=== PATIENT | female | born 1970 | race Caucasian/White ===

== ENCOUNTER 2017-09-12 19:36 | Emergency (ER) | payer MEDICAID ==
[2017-09-12 19:36] VITALS: BMI 23.4
[2017-09-12 19:55] VITALS: BP 129/85; PULSE 99; RESP 18; TEMP 98.6; O2SAT 99
--- NOTE | 2017-09-12 21:42 | C.PDOC ---
Time Seen by Provider: 09/12/17 20:36 Chief Complaint (Nursing): Flu-like Symptoms Past Medical History Vital Signs: Last Vital Signs Temp 98.6 F 09/12/17 19:52 Pulse 99 H 09/12/17 19:52 Resp 18 09/12/17 19:52 BP 129/85 09/12/17 19:52 Pulse Ox 99 09/12/17 19:52 - Medical History PMH: Denies: Anxiety, Bipolar Disorder, Depression, Paranoia, Post Traumatic Stress Disorder, Schizophrenia, Sexually Transmitted Disease Surgical History: Denies: Appendectomy, CABG, Carotid Endarterectomy, Cholecystectomy, Coronary Stent, Tonsillectomy - [facility] Procedures CYSTOSCOPY NEC (11/04/13) INSERT INTERCOSTAL CATH (11/04/13) OTH REMOVE BOTH OVARIES/TUBES (11/04/13) OTHER AND UNSPECIFIED SUBTOTAL ABDOMINAL HYSTERECTOMY (11/04/13) PACKED CELL TRANSFUSION (11/04/13) THORACOSCOPIC DECORTICATION OF LUNG (11/04/13) URETERAL CATHETERIZATION (11/04/13) VENOUS CATHETERIZATION NEC (11/04/13) - Social History Hx Tobacco Use: No Hx Alcohol Use: No Hx Substance Use: No - Immunization History Hx Tetanus Toxoid Vaccination: No Hx Influenza Vaccination: No Hx Pneumococcal Vaccination: No ED Course And Treatment O2 Sat by Pulse Oximetry: 99 Disposition - Disposition Referrals: [facility] [Outside] Disposition: HOME/ ROUTINE Disposition Time: 21:36 Condition: GOOD Additional Instructions: Follow up with the medical doctor within 1-2 days. Return if worsened. Prescriptions: Benzonatate [Tessalon Perles] 200 mg PO TID PRN #21 sgl PRN Reason: Cough Loratadine [Claritin] 10 mg PO DAILY #10 tab predniSONE [Prednisone] 20 mg PO BID #10 tab Instructions: Acute Bronchitis (ED) Forms: [employer] ([employer]), Work Excuse - Clinical Impression Clinical Impression: Bronchitis
--- NOTE | 2017-09-12 21:45 | C.PDOC ---
History Of Present Illness 47 y/o female presents to the ER complaining of cough associated with body aches and runny nose which has been present for the past 3 days. Patient states that she had sick contacts at work. Patient denies having vomiting, diarrhea, rash, hemoptysis, chest pain, and SOB. Time Seen by Provider: 09/12/17 20:36 Chief Complaint (Nursing): Flu-like Symptoms History Per: Patient History/Exam Limitations: no limitations Onset/Duration Of Symptoms: Days Current Symptoms Are (Timing): Still Present Sick Contacts (Context): None Associated Symptoms: Cough. denies: Vomiting, Diarrhea Severity: Moderate Past Medical History Reviewed: Historical Data, Nursing Documentation, Vital Signs Vital Signs: Last Vital Signs Temp 98.6 F 09/12/17 19:52 Pulse 99 H 09/12/17 19:52 Resp 18 09/12/17 19:52 BP 129/85 09/12/17 19:52 Pulse Ox 99 09/13/17 03:57 - Medical History PMH: Denies: Anxiety, Bipolar Disorder, Depression, Paranoia, Post Traumatic Stress Disorder, Schizophrenia, Sexually Transmitted Disease Surgical History: Denies: Appendectomy, CABG, Carotid Endarterectomy, Cholecystectomy, Coronary Stent, Tonsillectomy - [facility] Procedures CYSTOSCOPY NEC (11/04/13) INSERT INTERCOSTAL CATH (11/04/13) OTH REMOVE BOTH OVARIES/TUBES (11/04/13) OTHER AND UNSPECIFIED SUBTOTAL ABDOMINAL HYSTERECTOMY (11/04/13) PACKED CELL TRANSFUSION (11/04/13) THORACOSCOPIC DECORTICATION OF LUNG (11/04/13) URETERAL CATHETERIZATION (11/04/13) VENOUS CATHETERIZATION NEC (11/04/13) Family History: States: No Known Family Hx - Social History Hx Tobacco Use: No Hx Alcohol Use: No Hx Substance Use: No - Immunization History Hx Tetanus Toxoid Vaccination: No Hx Influenza Vaccination: No Hx Pneumococcal Vaccination: No Review Of Systems Constitutional: Positive for: Malaise ENT: Positive for: Nose Congestion Cardiovascular: Negative for: Chest Pain Respiratory: Positive for: Cough. Negative for: Shortness of Breath Gastrointestinal: Negative for: Vomiting, Diarrhea Skin: Negative for: Rash Physical Exam - Physical Exam Appears: Non-toxic, No Acute Distress Skin: Normal Color, Warm, No Rash Head: Atraumatic, Normacephalic Eye(s): bilateral: Normal Inspection, PERRL, EOMI Ear(s): Bilateral: Normal Nose: Normal Oral Mucosa: Moist Throat: Normal, No Erythema, No Exudate Neck: Normal ROM, Supple Chest: Symmetrical Cardiovascular: Rhythm Regular, No Friction Rub, No Murmur Respiratory: Normal Breath Sounds, No Accessory Muscle Use, No Rales, No Rhonchi , No Wheezing Gastrointestinal/Abdominal: Normal Exam, Soft, No Tenderness Back: Normal Inspection, No CVA Tenderness Extremity: Normal ROM Neurological/Psych: Oriented x3, Normal Speech, Normal Motor, Normal Sensation Gait: Steady ED Course And Treatment O2 Sat by Pulse Oximetry: 99 (RA) Pulse Ox Interpretation: Normal Medical Decision Making Medical Decision Making: Plan: --Prednisone --Motrin --Tamiflu On re-exam, the patient reports improvement of symptoms. Lungs are CTA, heart is RRR, abdomen is soft, non-tender and tolerating PO well. ambulatory in the ED with steady gait. Follow up with the medical doctor within 1-2 days, Return if worsened. Disposition - Disposition Referrals: [facility] [Outside] Disposition: HOME/ ROUTINE Disposition Time: 21:30 Condition: GOOD Additional Instructions: Follow up with the medical doctor within 1-2 days. Return if worsened. Prescriptions: Benzonatate [Tessalon Perles] 200 mg PO TID PRN #21 sgl PRN Reason: Cough Loratadine [Claritin] 10 mg PO DAILY #10 tab predniSONE [Prednisone] 20 mg PO BID #10 tab Instructions: Acute Bronchitis (ED) Forms: [facility] (Danish), Work Excuse - Clinical Impression Clinical Impression: Bronchitis - Scribe Statement The provider has reviewed the documentation as recorded by the Esme Corrales Provider Attestation All medical record entries made by the Everibjes were at my direction and personally dictated by me. I have reviewed the chart and agree that the record accurately reflects my personal performance of the history, physical exam, medical decision making, and the department course for this patient. I have also personally directed, reviewed, and agree with the discharge instructions and disposition.
== END 2017-09-12 21:59 | disposition home or self-care (01) ==
LOC: C.ER 19:36 → SUPCPDRO 19:36 → C.ER 21:59
DX: J40 Bronchitis, not specified as acute or chronic (principal)